=== PATIENT | female | born 1955 | race Caucasian/White ===

== ENCOUNTER → 2018-03-13 10:17 | Outpatient (CLI) | payer BC, SELFPAY ==
--- NOTE | 2018-03-13 10:20 | RAD_ITS ---
STUDY: X-RAY - LUMBAR SPINE REASON FOR EXAM: Female, 62 years old. Fall at work. Spinal fusion TECHNIQUE: 3 view(s) of the lumbar spine were obtained. COMPARISON: None FINDINGS: There is an exaggerated lumbar lordosis. There is no substantial scoliosis. Grade 1 anterolisthesis of L4 and L5 with posterior fusion. Fusion hardware is intact. Remote compression injury of the superior endplate of T11, T12 and L1. There is multilevel endplate spondylosis of the lumbar vertebrae. There is multi-level degenerative disc disease with multi-level disc space narrowing. There is no demonstrated fracture. The soft tissue structures are unremarkable. RAD/Lumbar Spine 2 or 3 Views IMPRESSION: Postsurgical and degenerative changes as above. No evidence of acute abnormality. Electronically Signed: Tristen Palumbo DO at 8:23 EDT Tel , Service support ,
--- NOTE | 2018-03-13 10:20 | RAD_ITS ---
STUDY: X-RAY - THORACIC SPINE REASON FOR EXAM: Female, 62 years old. Fall at work with back pain TECHNIQUE: 3 view(s) of the thoracic spine were obtained. Weightbearing views COMPARISON: None. FINDINGS: Normal kyphosis of the thoracic spine. There is no substantial scoliosis. There is multilevel endplate spondylosis of the thoracic vertebrae. There is multilevel disc space narrowing of the thoracic spine. There appears to be several chronic compression injuries of several mid thoracic spine vertebral bodies. The soft tissue structures are unremarkable. RAD/Thoracic Spine 3 Views IMPRESSION: Mild degenerative changes without acute findings Electronically Signed: Tristen Palumbo DO at 8:24 EDT Tel , Service support ,
== END ==
PROVIDERS: Family Provider Physician Assistant Medical; PCP Physician Assistant Medical; Visit Provider Physician Assistant
DX: M47.895 Other spondylosis, thoracolumbar region (principal); M48.05 Spinal stenosis, thoracolumbar region; M51.36 Other intervertebral disc degeneration, lumbar region
CPT/HCPCS: 72072; 72100

== ENCOUNTER → 2018-03-23 17:35 | Outpatient (CLI) | payer OTHER, SELFPAY ==
--- NOTE | 2018-03-23 17:37 | MRI_ITS ---
STUDY: MRI THORACIC SPINE WITHOUT CONTRAST REASON FOR EXAM: Female, 62 years old. Pain in the mid to upper back TECHNIQUE: Standardized fat and water weighted pulse sequences were obtained in the sagittal and axial planes. COMPARISON: None. FINDINGS: Normal kyphosis of the thoracic spine. There is no substantial scoliosis. There is chronic wedging or large Schmorl's node of the inferior endplate of T5. There is wedging of the superior endplate of T8 which demonstrates diffusely low signal on T1 and increased signal on T2 extending into the pedicles bilaterally with linear low signal changes consistent with acute compression fracture with approximately 50% loss of vertebral body height. . There is a small central disc protrusion at T7-8 with mild narrowing the central canal but no cord compression. There is minimal bulging of the disc at T5-6 without significant spinal stenosis There is a small left paracentral/posterolateral disc protrusion at T9-10 without significant spinal stenosis. There is minor bulging of the disc at T10-11 without significant spinal stenosis Normal visualized thoracic cord. Normal conus medullaris that terminates at T12-L1. The soft tissue structures are unremarkable. MRI/Spine Thoracic (Routine) IMPRESSION: Findings consistent with acute compression fracture of T8 with approximately 50% loss of vertebral body height but no retropulsion of bony fragments. There is mild central canal stenosis at T7-8 secondary to small central disc protrusion Electronically Signed: Leo Otero MD at 19:37 EDT , Service support ,
== END ==
PROVIDERS: Family Provider Physician Assistant Medical; PCP Physician Assistant Medical; Referring Provider Physician Assistant; Visit Provider Physician Assistant
DX: S23.3XXA Sprain of ligaments of thoracic spine, initial encounter (principal); X58.XXXA Exposure to other specified factors, initial encounter
CPT/HCPCS: 72146; 72157